=== PATIENT | female | born 1955 | race Caucasian/White ===

== ENCOUNTER → 2018-07-29 | Outpatient (CLI) | payer BC | LOC: MC.RAD 06-24 09:00 | DX: Z12.31 Encounter for screening mammogram for malignant neoplasm of breast (principal) ==

== ENCOUNTER 2019-07-13 16:30 | Outpatient (RCR) | payer BC | END 2019-08-24 | disposition home or self-care (01) | LOC: WSC | DX: Z00.00 Encounter for general adult medical examination without abnormal findings (principal); M85.80 Other specified disorders of bone density and structure, unspecified site; R19.5 Other fecal abnormalities; M54.2 Cervicalgia; Z80.0 Family history of malignant neoplasm of digestive organs; Z98.890 Other specified postprocedural states; Z90.49 Acquired absence of other specified parts of digestive tract; Z90.89 Acquired absence of other organs ==

== ENCOUNTER → 2019-08-03 | Outpatient (CLI) | payer BC | LOC: MC.RAD 15:00 | DX: Z12.31 Encounter for screening mammogram for malignant neoplasm of breast (principal) ==

== ENCOUNTER → 2020-09-20 | Outpatient (CLI) | payer BC | LOC: MC.RAD 15:53 | DX: Z12.31 Encounter for screening mammogram for malignant neoplasm of breast (principal) ==

== ENCOUNTER → 2021-05-16 | Outpatient (CLI) | payer BC | LOC: COL.RAD 11:37 | DX: N28.89 Other specified disorders of kidney and ureter (principal); R31.29 Other microscopic hematuria; Z96.0 Presence of urogenital implants ==

== ENCOUNTER → 2021-05-25 | Outpatient (CLI) | payer BC | LOC: COL.RAD 07:03 | DX: D17.71 Benign lipomatous neoplasm of kidney (principal) | CPT/HCPCS: Q9967 ==

== ENCOUNTER → 2022-06-14 | Outpatient (CLI) | payer BC | LOC: MC.RAD 10:30 | DX: Z12.31 Encounter for screening mammogram for malignant neoplasm of breast (principal) ==

== ENCOUNTER → 2022-08-15 | Outpatient (CLI) | payer BC | LOC: MHCPAIN 15:25 | DX: M47.897 Other spondylosis, lumbosacral region (principal); M54.16 Radiculopathy, lumbar region; M25.551 Pain in right hip; G89.29 Other chronic pain | CPT/HCPCS: G0463 ==

== ENCOUNTER → 2023-01-03 | Outpatient (CLI) | payer BC | LOC: MHCPAIN 11-22 11:56 | DX: M47.817 Spondylosis without myelopathy or radiculopathy, lumbosacral region (principal); M54.50 Low back pain, unspecified; M53.3 Sacrococcygeal disorders, not elsewhere classified ==